=== PATIENT | female | born 1955 | race Caucasian/White ===

== ENCOUNTER 2017-03-09 19:14 | Emergency (ER) | payer OTHER ==
[2017-03-09 19:30] VITALS: TEMP 98.8; BMI 26.2
[2017-03-09] MEDS ORDERED: KETOROLAC TROMETHAMINE 30 MG/1 ML VIAL IVPUSH ONE (20:28)
--- NOTE | 2017-03-09 20:28 | PDOC ---
History of Present Illness - General History Source: Patient Exam Limitations: No Limitations - History of Present Illness Initial Comments: 03/09/17 20:32 61 yr old female, with significant past medical history of HTN, who presents to the emergency room complaining of midsternal, nonradiating chest pain for several weeks. She describes the pain as pressure. She has not taken any medication for the pain because she didn't think anything of it; however, the chest pain has not resolved and wanted to get checked out. Denies heavy lifting, trauma, recent injury. Denies fever, chills, nausea, vomiting. Denies SOB, cough. Denies recent travel. Denies sick contacts. Allergies: NKDA Social Hx: No tobacco use. PCP: Dr. Barron <Kimberley Russo - Last Filed: 03/09/17 21:20> - General History Source: Patient <Wes Choi - Last Filed: 03/10/17 02:01> - General Chief Complaint: Chest Pain Stated Complaint: CHEST PAIN Time Seen by Provider: 03/09/17 20:27 Past History <Kimberley Russo - Last Filed: 03/09/17 21:20> - Past Medical History HTN: Yes - Surgical History Appendectomy: Yes - Immunization History Td Vaccination: No Immunization Up to Date: Yes - Suicide/Smoking/Psychosocial Hx Smoking Status: No Smoking History: Never smoked Number of Cigarettes Smoked Daily: 0 Hx Alcohol Use: No Drug/Substance Use Hx: No <Wes Choi - Last Filed: 03/10/17 02:01> - Past Medical History Allergies/Adverse Reactions: Allergies Allergy/AdvReac Type Severity Reaction Status Date / Time No Known Allergies Allergy Verified 03/09/17 19:31 Home Medications: Ambulatory Orders Cyclobenzaprine HCl [Flexeril 10 mg] 10 mg PO BID PRN 03/09/17 Losartan/Hydrochlorothiazide [Losartan-Hctz 50-12.5 mg Tab] 1 each PO DAILY 03/16 Review of Systems - Review of Systems Able to Perform ROS?: Yes Comments:: 03/09/17 20:33 CONSTITUTIONAL: Absent: fever, no chills, no fatigue EYES: Absent: visual changes ENT: Absent: ear pain, no sore throat CARDIOVASCULAR: Present: chest pain Absent: no palpitations RESPIRATORY: Absent: cough, no SOB GI: Absent: abdominal pain, no nausea, no vomiting, no constipation, no diarrhea GENITOURINARY: Absent: dysuria, no frequency, no hematuria MUSCULOSKELETAL: Absent: back pain, no arthralgia, no myalgia SKIN: Absent: rash <RafaelaKimberley - Last Filed: 03/09/17 21:20> *Physical Exam - Vital Signs Last Vital Signs Temp Pulse Resp BP Pulse Ox 98.8 F 97 H 16 146/83 100 03/09/17 19:26 03/09/17 19:26 03/09/17 19:26 03/09/17 19:26 03/09/17 19:26 - Physical Exam Comments: 03/09/17 20:34 GENERAL: Well-appearing, well-nourished. No apparent distress. HEENT: Normocephalic, atraumatic. PERRL, EOM intact. CARDIOVASCULAR: Normal S1, S2. Regular rate and rhythm. PULMONARY: Clear to auscultation bilaterally. ABDOMEN: Soft, non-distended, non-tender. EXTREMITIES: Normal ROM in all four extremities. No gross deformities. SKIN: Warm, dry. No rash NEUROLOGICAL: No focal neurological deficits. <RafaelaKimberley - Last Filed: 03/09/17 21:20> - Vital Signs Last Vital Signs Temp Pulse Resp BP Pulse Ox 98.8 F 97 H 16 146/83 100 03/09/17 19:26 03/09/17 19:26 03/09/17 19:26 03/09/17 19:26 03/09/17 19:26 <Wes Choi - Last Filed: 03/10/17 02:01> Heart Score/ECG Review #1 General ECG Interpretation: Sinus Rhythm, Normal Rate, Normal Intervals <RafaelaKimberley - Last Filed: 03/09/17 21:20> ED Treatment Course - LABORATORY CBC & Chemistry Diagram: 03/09/17 20:49 03/09/17 20:49 - RADIOLOGY Radiograph Interpretation: 03/09/17 21:20 EXAM#: TYPE/EXAM: RESULT: [id number] RAD/CHEST X-RAY PORTABLE* Rule out infiltrate Portable chest x-ray, semiupright Since prior chest x-ray dated 03/22/2013, the cardiac silhouette remains within normal limits in size and the lung is clear. Mediastinum and visualized osseous structures appear intact. Impression No significant interval change or acute lung disease is present Reported By: Abundio Monahan MD 03/09/172112 <Kimberley Russo - Last Filed: 03/09/17 21:20> - LABORATORY CBC & Chemistry Diagram: 03/09/17 20:49 03/09/17 20:49 <Wes Choi - Last Filed: 03/10/17 02:01> Medical Decision Making - Medical Decision Making 03/10/17 01:58 Dr. Choi: The scribe's documentation has been prepared under my direction and personally reviewed by me in its entirery. I confirm that the note above accurately reflects all work, treatment, procedures, and medical decision making performed by me. 03/10/17 02:00 Pt advised to continue her medications and follow up with cardiology <Wes Choi - Last Filed: 03/10/17 02:01> *DC/Admit/Observation/Transfer - Attestations Scribe Attestion: 03/09/17 20:34 Documentation prepared by THAIS Heredia, acting as medical instructor for Wes Choi MD. <Kimberley Russo - Last Filed: 03/09/17 21:20> - Discharge Dispostion Admit: No <Wes Choi - Last Filed: 03/10/17 02:01> Diagnosis at time of Disposition: Chest pain - Discharge Dispostion Disposition: HOME Condition at time of disposition: Stable - Referrals Referrals: Tameka Barron MD [Primary Care Provider] - Hernandez Leon MD [Staff Physician] - - Patient Instructions Printed Discharge Instructions: DI for Chest Pain
[2017-03-09] MEDS ORDERED: KETOROLAC TROMETHAMINE 30 MG/1 ML VIAL ONE (20:33)
[2017-03-09 20:57] LABS: BASOPHIL 0.4 % (0-2.0); EOSINOPHIL 0.6 % (0-4.5); MCH 29.4 pg (25.7-33.7); MCHC 33.4 g/dl (32.0-36.0); NEUTROPHILS 72.4 % (42.8-82.8); PLATELET COUNT 263 K/MM3 (134-434); WHITE BLOOD COUNT 4.9 K/mm3 (4.0-10.0)
[2017-03-09 21:12] LABS: INR 0.88 (0.82-1.09); PROTHROMBIN TIME (PATIENT) 9.7 SEC (9.98-11.88)
[2017-03-09 21:36] LABS: ALBUMIN 4.5 g/dl (3.4-5.0); ANION GAP 9 (8-16); BILIRUBIN,TOTAL 0.3 mg/dL (0.2-1.0); CALCIUM 9.6 mg/dL (8.5-10.1); CO2 30 mmol/L (21-32); CREATININE 1.3 mg/dL (0.55-1.02); GLUCOSE,RANDOM 97 mg/dL (74-106); MAGNESIUM 2.3 mg/dL (1.8-2.4); SGOT/AST 28 U/L (15-37); SGPT/ALT 29 U/L (12-78); TOT PROT 8.6 g/dl (6.4-8.2)
[2017-03-09 21:39] LABS: ALK PHOS 113 U/L (45-117); CPK 241 IU/L (26-192); TROPONIN I < 0.02 ng/ml (0.00-0.05)
[2017-03-09] MEDS ORDERED: ONDANSETRON 4 MG/2 ML VIAL IVPUSH STA (22:56)
[2017-03-09] MEDS ORDERED: morphine CARPU-JECT 2 MG/1 ML DISP.SYRIN IVPUSH ONE (22:56)
[2017-03-09] MEDS ORDERED: morphine CARPU-JECT 10 MG/1 ML DISP.SYRIN ONE (22:59)
[2017-03-09] MEDS ORDERED: ONDANSETRON 4 MG/2 ML VIAL ONE (22:59)
[2017-03-10 01:19] VITALS: BP 127/82; PULSE 89
[2017-03-10 01:52] LABS: CPK 178 IU/L (26-192); TROPONIN I < 0.02 ng/ml (0.00-0.05)
--- NOTE | 2017-03-10 12:00 | EKG ---
Test Reason : Blood Pressure : / mmHG Vent. Rate : 095 BPM Atrial Rate : 095 BPM P-R Int : 166 ms QRS Dur : 082 ms QT Int : 376 ms P-R-T Axes : 064 -15 052 degrees QTc Int : 472 ms NORMAL SINUS RHYTHM NORMAL ECG WHEN COMPARED WITH ECG OF 12-NOV-2014 02:42, VENT. RATE HAS INCREASED BY 43 BPM QUESTIONABLE CHANGE IN QRS AXIS QT HAS LENGTHENED Confirmed by KIKA FALK, SUMAN ([id number]) on 03/10/2017 12:00:22 PM Referred By: Confirmed By:SUMAN ANAND MD
== END 2017-03-10 02:05 | disposition home or self-care (01) ==
LOC: JER 19:14
PROC: 3E033NZ Introduction of Analgesics, Hypnotics, Sedatives into Peripheral Vein, Percutaneous Approach (ICD-10-PCS; principal; 2017-03-09)
PROC: 3E0333Z Introduction of Anti-inflammatory into Peripheral Vein, Percutaneous Approach (ICD-10-PCS; 2017-03-09)
PROC: 3E033GC Introduction of Other Therapeutic Substance into Peripheral Vein, Percutaneous Approach (ICD-10-PCS; 2017-03-09)
DX: R07.9 Chest pain, unspecified (principal); I10 Essential (primary) hypertension
CPT/HCPCS: 36415; 71010-TC; 80053; 82550; 82553; 83735; 84484; 85025; 85610; 93005; 93010; 99284-25

== ENCOUNTER 2017-06-08 14:44 | Emergency (ER) | payer OTHER ==
[2017-06-08 15:05] VITALS: BP 131/80; PULSE 84; TEMP 98.7; BMI 24.1
--- NOTE | 2017-06-08 15:07 | PDOC ---
Rapid Medical Evaluation Chief Complaint: Cold Symptoms Time Seen by Provider: 06/08/17 15:03 Medical Evaluation: Allergies Allergy/AdvReac Type Severity Reaction Status Date / Time No Known Allergies Allergy Verified 03/09/17 19:31 06/08/17 15:03 The patient presents with a chief complaint of: Pleuritic chest pain and dry cough for 6 days. Admits to fevers, chills, headache, sore throat I have performed a brief in-person evaluation of this patient; Pertinent physical exam findings. Expiratory wheezing, afebrile I have ordered the following: Rapid strep, influenza, CXR The patient will proceed to the ED for further evaluation. Discharge Disposition - Diagnosis Bronchitis - Discharge Dispostion Disposition: HOME Condition at time of disposition: Improved - Prescriptions Prescriptions: Albuterol Sulfate Inhaler - [Ventolin HFA Inhaler -] 1 - 2 inh PO Q4H #1 inhaler Albuterol Sulfate Inhaler - [Ventolin HFA Inhaler -] 1 - 2 inh PO Q4H #1 inhaler Prednisone [Deltasone -] 40 mg PO DAILY #10 tablet Prednisone [Deltasone -] 40 mg PO DAILY #10 tablet - Referrals Referrals: Jose Cunha MD [Primary Care Provider] - - Patient Instructions Additional Instructions: use the inhaler as directed take the next dose of prednisone tomorrow morning continue the Augmentin you have already started follow with your doctor in 24-48hrs for a follow up visit Return to ER for any worsening symptoms - Post Discharge Activity
[2017-06-08] MEDS ORDERED: predniSONE 20 MG TABLET (UD) PO ONE (15:34)
[2017-06-08] MEDS ORDERED: ALBUTEROL SO4 2.5/IPRATROPIUM 0.5 INH SOL 3 ML VIAL.NEB. NEB ONE (15:34)
[2017-06-08 16:09] LABS: BASO % 0.4 % (0-2.0); EOS % 0.9 % (0-4.5); HEMATOCRIT 40.1 % (32.4-45.2); HEMOGLOBIN 13.5 GM/dL (10.7-15.3); LYMPH % 27.4 % (8-40); MCH 29.4 pg (25.7-33.7); MCHC 33.6 g/dl (32.0-36.0); MEAN CELL VOLUME 87.5 fl (80-96); MEAN PLT VOLUME 8.6 fl (7.5-11.1); MONO % 9.9 % (3.8-10.2); NEUT % 61.4 % (42.8-82.8); PLATELET COUNT 239 K/MM3 (134-434); RBC 4.58 M/mm3 (3.60-5.2); RDW 13.6 % (11.6-15.6)
--- NOTE | 2017-06-08 16:20 | PDOC ---
History of Present Illness - General Chief Complaint: Cold Symptoms Stated Complaint: CHEST TIGHTNESS,COUGH,FEVER, CONGESTION Time Seen by Provider: 06/08/17 15:03 History Source: Patient Exam Limitations: No Limitations - History of Present Illness Initial Comments: 06/08/17 16:18 62 yr female history of HTN with cough for one week getting worse. fever yesterday on Augmentin day 4 . Pt has wheezing. no chest pain no shortness of breath. non smoker no sick contacts. Timing/Duration: reports: getting worse Severity: reports: moderate Past History - Past Medical History Allergies/Adverse Reactions: Allergies Allergy/AdvReac Type Severity Reaction Status Date / Time No Known Allergies Allergy Verified 06/08/17 15:05 Home Medications: Ambulatory Orders Losartan/Hydrochlorothiazide [Losartan-Hctz 50-12.5 mg Tab] 1 each PO DAILY 03/16 Albuterol Sulfate Inhaler - [Ventolin HFA Inhaler -] 1 - 2 inh PO Q4H #1 inhaler 06/08/17 Amoxicillin/Potassium Clav [Augmentin 875-125 Tablet] 1 each PO ASDIR 06/08/17 Guaifenesin [Mucinex -] 600 mg PO BID 06/08/17 Prednisone [Deltasone -] 40 mg PO DAILY #10 tablet 06/08/17 COPD: No HTN: Yes - Surgical History Appendectomy: Yes - Immunization History Td Vaccination: No Immunization Up to Date: Yes - Suicide/Smoking/Psychosocial Hx Smoking Status: No Smoking History: Never smoked Number of Cigarettes Smoked Daily: 0 Information on smoking cessation initiated: No Hx Alcohol Use: No Drug/Substance Use Hx: No Substance Use Type: None Respiratory Specific PMHX - Complaint Specific PMHX Angina: No Bronchitis: No Pneumonia: No Pulmonary Embolus: No TB (Tuberculosis): No Review of Systems - Review of Systems Able to Perform ROS?: Yes Is the patient limited [place] proficient: No Constitutional: Yes: Symptoms Reported, Fever HEENTM: Yes: Symptoms Reported, Throat Pain Respiratory: Yes: Symptoms reported, Cough *Physical Exam - Vital Signs Last Vital Signs Temp Pulse Resp BP Pulse Ox 98.7 F 84 18 131/80 99 06/08/17 15:02 06/08/17 15:02 06/08/17 15:02 06/08/17 15:02 06/08/17 15:02 - Physical Exam General Appearance: Yes: Nourished, Appropriately Dressed HEENT: positive: EOMI, RACHANA, TMs Normal, Pharynx Normal Neck: positive: Supple. 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, Fully Oriented, Alert, Normal Mood/ Affect, Normal Response, Motor Strength 5/5 Heart Score/ECG Review - Electrocardiogram EKG: Normal (NSR no ectopy) ED Treatment Course - LABORATORY CBC & Chemistry Diagram: 06/08/17 15:36 06/08/17 15:36 - ADDITIONAL ORDERS Additional order review: 06/08/17 15:36 RBC 4.58 MCV 87.5 MCHC 33.6 RDW 13.6 MPV 8.6 Neutrophils % 61.4 Lymphocytes % 27.4 D Monocytes % 9.9 Eosinophils % 0.9 Basophils % 0.4 - Medications Given in the ED: ED Medications Discontinued Medications Generic Name Dose Route Start Last Admin Trade Name Freq PRN Reason Stop Dose Admin Albuterol/Ipratropium 1 amp 06/08/17 15:34 06/08/17 15:43 Duoneb - NEB 06/08/17 15:35 1 amp ONCE ONE Administration Prednisone 60 mg 06/08/17 15:34 06/08/17 15:48 Deltasone - PO 06/08/17 15:35 60 mg ONCE ONE Administration Medical Decision Making - Medical Decision Making 06/08/17 16:19 cc: cough fever yesterday wheezing bilaterally will check labs, EKG, CXR duonebs prednisone 06/08/17 16:42 pt feels better after nebulizers. wheezing has resolved pt speaking clear sentences no distress. *DC/Admit/Observation/Transfer Diagnosis at time of Disposition: Bronchitis - Discharge Dispostion Disposition: HOME Condition at time of disposition: Improved - Prescriptions Prescriptions: Albuterol Sulfate Inhaler - [Ventolin HFA Inhaler -] 1 - 2 inh PO Q4H #1 inhaler Prednisone [Deltasone -] 40 mg PO DAILY #10 tablet - Referrals Referrals: Jose Cunha MD [Primary Care Provider] - - Patient Instructions Additional Instructions: use the inhaler as directed take the next dose of prednisone tomorrow morning continue the Augmentin you have already started follow with your doctor in 24-48hrs for a follow up visit Return to ER for any worsening symptoms - Post Discharge Activity
[2017-06-08 16:35] LABS: ALBUMIN 4.2 g/dl (3.4-5.0); CALCIUM 9.3 mg/dL (8.5-10.1); CHLORIDE 100 mmol/L (98-107); POTASSIUM 3.5 mmol/L (3.5-5.1); SODIUM 140 mmol/L (136-145)
[2017-06-08 16:43] LABS: ALK PHOS 81 U/L (45-117); ANION GAP 10 (8-16); BILIRUBIN,TOTAL 0.5 mg/dL (0.2-1.0); BLOOD UREA NITROGEN 15 mg/dL (7-18); CO2 30 mmol/L (21-32); CREATININE 1.1 mg/dL (0.55-1.02); GLUCOSE,RANDOM 102 mg/dL (74-106); N-TERMINAL BNP 49.33 pg/ml (5-125); SGOT/AST 37 U/L (15-37); SGPT/ALT 40 U/L (12-78); TOT PROT 8.4 g/dl (6.4-8.2)
--- NOTE | 2017-06-09 09:27 | EKG ---
Test Reason : Blood Pressure : / mmHG Vent. Rate : 073 BPM Atrial Rate : 073 BPM P-R Int : 144 ms QRS Dur : 076 ms QT Int : 414 ms P-R-T Axes : 065 -15 044 degrees QTc Int : 456 ms NORMAL SINUS RHYTHM NORMAL ECG WHEN COMPARED WITH ECG OF 09-MAR-2017 19:29, NO SIGNIFICANT CHANGE WAS FOUND Confirmed by SUMAN ANAND MD ([id number]) on 06/09/2017 9:27:10 AM Referred By: FADY Confirmed By:SUMAN ANAND MD
== END 2017-06-08 17:01 | disposition home or self-care (01) ==
LOC: JERFT 14:44
PROC: 3E0F7GC Introduction of Other Therapeutic Substance into Respiratory Tract, Via Natural or Artificial Opening (ICD-10-PCS; principal; 2017-06-08)
DX: J40 Bronchitis, not specified as acute or chronic (principal); I10 Essential (primary) hypertension
CPT/HCPCS: 36415; 71046-TC; 80053; 82550; 83880; 84484; 85025; 87070; 87430; 87804; 93005; 93010; 94640; 99281-25

== ENCOUNTER 2020-04-17 14:38 | Emergency (ER) | payer MEDICARE, OTHER ==
[2020-04-17 14:50] VITALS: BMI 25.7
[2020-04-17] MEDS ORDERED: ACETAMINOPHEN 1000 MG/100 ML VIAL (NON FORMULARY) IVPB ONE (14:55)
[2020-04-17] MEDS ORDERED: METOCLOPRAMIDE HCL INJECTION 10 MG/2 ML VIAL IVPB ONE (14:55)
[2020-04-17] MEDS ORDERED: SODIUM CHLORIDE 1,000 ML IV STA (14:55)
[2020-04-17] MEDS ORDERED: METOCLOPRAMIDE HCL INJECTION 10 MG/2 ML VIAL ONE (16:10)
[2020-04-17] MEDS ORDERED: ACETAMINOPHEN INJECTION 100 ML IVPB ONE (16:10)
[2020-04-17 16:37] LABS: BASO % 0.7 % (0-2.0); EOS % 0.9 % (0-4.5); HEMATOCRIT 38.7 % (32.4-45.2); HEMOGLOBIN 12.8 GM/dL (10.7-15.3); LYMPH % 21.7 % (8-40); MCH 28.9 pg (25.7-33.7); MEAN CELL VOLUME 87.5 fl (80-96); MEAN PLT VOLUME 8.8 fl (7.5-11.1); MONO % 7.7 % (3.8-10.2); PLATELET COUNT 276 K/MM3 (134-434); RBC 4.42 M/mm3 (3.60-5.2); RDW 13.9 % (11.6-15.6); WHITE BLOOD COUNT 4.5 K/mm3 (4.0-10.0)
[2020-04-17 16:42] LABS: INR 0.96 (0.83-1.09); PROTHROMBIN TIME (PATIENT) 11.6 SEC (9.7-13.0)
[2020-04-17 16:55] LABS: CHLORIDE 107 mmol/L (98-107); POTASSIUM 5.7 mmol/L (3.5-5.1); SODIUM 139 mmol/L (136-145)
[2020-04-17 16:57] LABS: CALCIUM 9.6 mg/dL (8.5-10.1)
[2020-04-17 16:58] LABS: ALBUMIN 4.1 g/dl (3.4-5.0); ANION GAP 5 MMOL/L (8-16); BLOOD UREA NITROGEN 14.6 mg/dL (7-18); CO2 27 mmol/L (21-32); GLUCOSE,RANDOM 92 mg/dL (74-106)
[2020-04-17 17:01] LABS: CREATININE 1.1 mg/dL (0.55-1.3); SGOT/AST 51 U/L (15-37); SGPT/ALT 23 U/L (13-61)
[2020-04-17 17:02] LABS: BILIRUBIN,TOTAL 0.5 mg/dL (0.2-1); TOT PROT 7.9 g/dl (6.4-8.2)
[2020-04-17 17:04] LABS: ALK PHOS 72 U/L (45-117)
[2020-04-17 18:21] VITALS: BP 164/98; PULSE 89; TEMP 98.2
== END 2020-04-17 18:20 | disposition home or self-care (01) ==
LOC: JER 14:38
PROC: 3E0333Z Introduction of Anti-inflammatory into Peripheral Vein, Percutaneous Approach (ICD-10-PCS; principal; 2020-04-17)
PROC: 3E033GC Introduction of Other Therapeutic Substance into Peripheral Vein, Percutaneous Approach (ICD-10-PCS; 2020-04-17)
DX: G44.89 Other headache syndrome (principal)
CPT/HCPCS: 36415; 70450-TC; 80053; 82550; 82553; 84484; 85025; 85610; 85651; 86140; 93005; 93010; 99285-25; J0131

== ENCOUNTER 2020-05-26 06:37 | Emergency (ER) | payer MEDICARE, OTHER ==
[2020-05-26 06:51] VITALS: BMI 25.0
[2020-05-26] MEDS ORDERED: LACTATED RINGERS SOLUTION 1000 ML INFUS.BAG IV ONE (08:23)
[2020-05-26] MEDS ORDERED: ONDANSETRON 4 MG/2 ML VIAL IVPB ONE (08:23)
[2020-05-26] MEDS ORDERED: DEXAMETHASONE SOD PHOSPHATE 10 MG/1 ML VIAL PO ONE (08:27)
[2020-05-26] MEDS ORDERED: ACETAMINOPHEN 1000 MG/100 ML VIAL (NON FORMULARY) IVPB ONE (08:38)
[2020-05-26] MEDS ORDERED: DEXAMETHASONE SOD PHOSPHATE 10 MG/1 ML VIAL ONE (08:41)
[2020-05-26] MEDS ORDERED: ACETAMINOPHEN INJECTION 100 ML IVPB ONE (08:42)
[2020-05-26] MEDS ORDERED: ONDANSETRON 4 MG/2 ML VIAL ONE (08:42)
[2020-05-26 09:24] LABS: BASO % 0.1 % (0-2.0); EOS % 0.3 % (0-4.5); HEMATOCRIT 36.7 % (32.4-45.2); HEMOGLOBIN 12.5 GM/dL (10.7-15.3); INR 0.98 (0.83-1.09); LYMPH % 11.2 % (8-40); MCH 29.6 pg (25.7-33.7); MEAN CELL VOLUME 87.1 fl (80-96); MEAN PLT VOLUME 7.7 fl (7.5-11.1); MONO % 8.8 % (3.8-10.2); NEUT % 79.6 % (42.8-82.8); PLATELET COUNT 373 K/MM3 (134-434); PROTHROMBIN TIME (PATIENT) 12.1 SEC (9.7-13.0); RBC 4.22 M/mm3 (3.60-5.2); RDW 13.6 % (11.6-15.6); WHITE BLOOD COUNT 7.2 K/mm3 (4.0-10.0)
[2020-05-26 09:27] LABS: ACTIVATED PTT 25.9 SECONDS (25.2-36.5)
[2020-05-26 09:47] LABS: CHLORIDE 109 mmol/L (98-107); POTASSIUM 4.2 mmol/L (3.5-5.1); SODIUM 143 mmol/L (136-145)
[2020-05-26 09:49] LABS: ALBUMIN 3.3 g/dl (3.4-5.0); ANION GAP 3 MMOL/L (8-16); BLOOD UREA NITROGEN 13.7 mg/dL (7-18); CALCIUM 8.7 mg/dL (8.5-10.1); CO2 31 mmol/L (21-32); LIPASE 188 U/L (73-393); MAGNESIUM 2.2 mg/dL (1.8-2.4)
[2020-05-26 09:51] LABS: GLUCOSE,RANDOM 86 mg/dL (74-106)
[2020-05-26 09:52] LABS: CREATININE 1.1 mg/dL (0.55-1.3); SGOT/AST 11 U/L (15-37); SGPT/ALT 18 U/L (13-61)
[2020-05-26 09:54] LABS: BILIRUBIN,TOTAL 0.5 mg/dL (0.2-1)
[2020-05-26 09:56] LABS: ALK PHOS 69 U/L (45-117)
[2020-05-26] MEDS ORDERED: KETOROLAC TROMETHAMINE 15 MG/ML VIAL IVPUSH ONE (10:07)
[2020-05-26] MEDS ORDERED: BAMLANIVIMAB 700 MG in SODIUM CHLORIDE 180 ML IVPB ONE (10:26)
[2020-05-26] MEDS ORDERED: guaiFENesin/CODEINE 10 ML UNIT-DOSE CUPS PO ONE (10:26)
[2020-05-26] MEDS ORDERED: guaiFENesin/CODEINE 5 ML UNIT-DOSE CUPS PO ONE (10:43)
[2020-05-26] MEDS ORDERED: KETOROLAC TROMETHAMINE 15 MG/ML VIAL ONE (10:44)
[2020-05-26 15:41] VITALS: BP 129/64; PULSE 64; TEMP 98.8
== END 2020-05-26 15:45 | disposition home or self-care (01) ==
LOC: JER 06:37
PROC: 3E033NZ Introduction of Analgesics, Hypnotics, Sedatives into Peripheral Vein, Percutaneous Approach (ICD-10-PCS; principal; 2020-05-26)
PROC: 3E033GC Introduction of Other Therapeutic Substance into Peripheral Vein, Percutaneous Approach (ICD-10-PCS; 2020-05-26)
DX: R51.9 Headache, unspecified (principal); R07.9 Chest pain, unspecified
CPT/HCPCS: 36415; 71045-TC-FY; 80053; 82550; 83605; 83690; 83735; 84484; 85025; 85610; 85730; 93005; 93010; 99285-25; J0131; J1100; M0239; Q0239

== ENCOUNTER 2020-11-11 04:35 | Emergency (ER) | payer MEDICARE, OTHER ==
[2020-11-11 04:59] VITALS: BP 151/92; PULSE 101; TEMP 98; BMI 24.1
[2020-11-11 05:49] LABS: BASO % 0.7 % (0-2.0); EOS % 1.9 % (0-4.5); HEMATOCRIT 38.4 % (32.4-45.2); HEMOGLOBIN 12.5 GM/dL (10.7-15.3); LYMPH % 27.8 % (8-40); MCH 28.7 pg (25.7-33.7); MCHC 32.6 g/dl (32.0-36.0); MEAN CELL VOLUME 88.1 fl (80-96); MEAN PLT VOLUME 7.9 fl (7.5-11.1); MONO % 8.7 % (3.8-10.2); NEUT % 60.9 % (42.8-82.8); PLATELET COUNT 299 K/MM3 (134-434); RBC 4.36 M/mm3 (3.60-5.2); RDW 13.6 % (11.6-15.6); WHITE BLOOD COUNT 5.6 K/mm3 (4.0-10.0)
[2020-11-11 06:01] LABS: CHLORIDE 107 mmol/L (98-107); SODIUM 139 mmol/L (136-145)
[2020-11-11 06:03] LABS: CALCIUM 9.2 mg/dL (8.5-10.1)
[2020-11-11 06:04] LABS: ANION GAP 8 MMOL/L (8-16); BLOOD UREA NITROGEN 20.1 mg/dL (7-18); CO2 25 mmol/L (21-32); GLUCOSE,RANDOM 105 mg/dL (74-106)
[2020-11-11 06:06] LABS: SGPT/ALT 23 U/L (13-61)
[2020-11-11 06:07] LABS: SGOT/AST 24 U/L (15-37)
[2020-11-11 06:08] LABS: BILIRUBIN,TOTAL 0.3 mg/dL (0.2-1); TOT PROT 7.4 g/dl (6.4-8.2)
[2020-11-11 06:09] LABS: ALK PHOS 91 U/L (45-117)
== END 2020-11-11 05:54 | disposition home or self-care (01) ==
LOC: JER 04:35
DX: R68.2 Dry mouth, unspecified (principal)
CPT/HCPCS: 36415; 71046-TC-FY; 80053; 82550; 84484; 85025; 93005; 93010; 99285-25

== ENCOUNTER 2021-02-12 02:53 | Observation (INO) | payer MEDICARE, OTHER ==
[2021-02-12 03:02] VITALS: BMI 24.1
[2021-02-12] MEDS ORDERED: MAG HYDROX/AL HYDROX/SIMETH 30 ML UNIT-DOSE CUP PO ONE (03:45)
[2021-02-12] MEDS ORDERED: FAMOTIDINE 20 MG/50 ML IVPB 20 MG/50 ML MG IVPB ONE ×2 (03:45→04:28)
[2021-02-12] MEDS ORDERED: MAG HYDROX/AL HYDROX/SIMETH 30 ML UNIT-DOSE CUP ONE (04:28)
[2021-02-12 04:45] LABS: BASO % 0.7 % (0-2.0); EOS % 2.2 % (0-4.5); HEMATOCRIT 36.5 % (32.4-45.2); HEMOGLOBIN 12.3 GM/dL (10.7-15.3); LYMPH % 24.1 % (8-40); MCH 29.4 pg (25.7-33.7); MCHC 33.6 g/dl (32.0-36.0); MEAN CELL VOLUME 87.5 fl (80-96); MEAN PLT VOLUME 7.6 fl (7.5-11.1); MONO % 8.4 % (3.8-10.2); NEUT % 64.6 % (42.8-82.8); PLATELET COUNT 252 10^3/uL (134-434); RBC 4.17 M/mm3 (3.60-5.2); RDW 14.1 % (11.6-15.6); WHITE BLOOD COUNT 4.4 K/mm3 (4.0-10.0)
[2021-02-12 05:01] LABS: CHLORIDE 106 mmol/L (98-107); SODIUM 140 mmol/L (136-145)
[2021-02-12 05:05] LABS: ALBUMIN 3.9 g/dl (3.4-5.0); ANION GAP 6 MMOL/L (8-16); CO2 28 mmol/L (21-32); GLUCOSE,RANDOM 103 mg/dL (74-106)
[2021-02-12 05:06] LABS: BLOOD UREA NITROGEN 19.4 mg/dL (7-18)
[2021-02-12 05:08] LABS: CREATININE 1.1 mg/dL (0.55-1.3)
[2021-02-12 05:09] LABS: BILIRUBIN,TOTAL 0.2 mg/dL (0.2-1); SGOT/AST 23 U/L (15-37); SGPT/ALT 24 U/L (13-61); TOT PROT 7.6 g/dl (6.4-8.2)
[2021-02-12 05:11] LABS: ALK PHOS 96 U/L (45-117)
[2021-02-12 07:12] LABS: LIPASE 206 U/L (73-393)
[2021-02-12] MEDS ORDERED: ACETAMINOPHEN 325 MG TABLET (FP) PO ONE (07:39)
[2021-02-12] MEDS ORDERED: ACETAMINOPHEN 325 MG TABLET (FP) ONE (07:51)
[2021-02-12] MEDS ORDERED: ACETAMINOPHEN 325 MG TABLET (FP) PO PRN (10:48)
[2021-02-12] MEDS ORDERED: METHOCARBAMOL 500 MG TABLET PO SCH (11:00)
[2021-02-12 12:26] LABS: CHOLESTEROL 202 mg/dL (50-200)
[2021-02-12 12:29] LABS: HDL CHOLESTEROL 70 mg/dL (40-60); LDL CHOLESTEROL (ONLY SJRH) 112 mg/dL (5-100); TRIGLYCERIDES 83 mg/dL (0-150)
[2021-02-12] MEDS: PANTOPRAZOLE 40 MG TABLET PO SCH (17:48)
[2021-02-12] MEDS ORDERED: METHOCARBAMOL 500 MG TABLET ONE (17:48)
[2021-02-12] MEDS ORDERED: PANTOPRAZOLE 40 MG TABLET ONE (17:48)
[2021-02-12] MEDS ORDERED: ATORVASTATIN CA 10 MG TABLET (FP) PO SCH (22:00)
[2021-02-13 08:49] VITALS: TEMP 98.1
[2021-02-13] MEDS ORDERED: PANTOPRAZOLE 40 MG TABLET ONE (08:51)
[2021-02-13] MEDS ORDERED: LOSARTAN POTASSIUM 50 MG TABLET ONE (08:52)
[2021-02-13] MEDS: PANTOPRAZOLE 40 MG TABLET PO SCH (09:07)
[2021-02-13] MEDS ORDERED: LOSARTAN POTASSIUM 50 MG TABLET PO SCH (10:00)
[2021-02-13 13:43] VITALS: BP 118/70; PULSE 62
== END 2021-02-13 13:00 | disposition home or self-care (01) ==
LOC: JER 02:53 → JERBED 06:05 → INTOOBSV 06:05
PROVIDERS: ADMIT Internal Medicine; ATTEND Internal Medicine
PROC: 3E033GC Introduction of Other Therapeutic Substance into Peripheral Vein, Percutaneous Approach (ICD-10-PCS; principal; 2021-02-12)
DX: U07.1 COVID-19 (principal); J40 Bronchitis, not specified as acute or chronic; I10 Essential (primary) hypertension; R07.89 Other chest pain; J32.9 Chronic sinusitis, unspecified; Z82.49 Family history of ischemic heart disease and other diseases of the circulatory system
CPT/HCPCS: 36415; 71046-TC-FY; 80053; 80061; 82550; 82553; 83690; 84484; 85025; 93005; 93010; 93017; 93018; 96365; 99285-25; C9803; G0378; U0003; U0005

== ENCOUNTER 2022-04-16 23:26 | Emergency (ER) | payer MEDICARE, OTHER ==
[2022-04-16 23:32] VITALS: BP 165/94; PULSE 86; RESP 18; TEMP 97.4; BMI 23.6
[2022-04-17] MEDS ORDERED: FAMOTIDINE 20 MG/50 ML IVPB 20 MG/50 ML MG IVPB ONE ×2 (00:07→00:34)
[2022-04-17] MEDS ORDERED: MAG HYDROX/AL HYDROX/SIMETH -MYLANTA- ORAL SUSPENSION PO ONE (00:07)
[2022-04-17] MEDS ORDERED: ACETAMINOPHEN 1000 MG/100 ML BAG IVPB ONE ×2 (00:07→03:49)
[2022-04-17] MEDS ORDERED: ACETAMINOPHEN INJECTION 100 ML IVPB ONE ×2 (00:33→04:01)
[2022-04-17] MEDS ORDERED: MAG HYDROX/AL HYDROX/SIMETH 30 ML UNIT-DOSE CUP ONE (00:34)
[2022-04-17 01:09] LABS: BASO % 0.7 % (0-2.0); EOS % 2.4 % (0-4.5); HEMATOCRIT 36.2 % (32.4-45.2); HEMOGLOBIN 12.1 GM/dL (10.7-15.3); LYMPH % 26.6 % (8-40); MCH 29.4 pg (25.7-33.7); MCHC 33.5 g/dl (32.0-36.0); MEAN CELL VOLUME 87.5 fl (80-96); MEAN PLT VOLUME 7.6 fl (7.5-11.1); MONO % 9.1 % (3.8-10.2); NEUT % 61.2 % (42.8-82.8); PLATELET COUNT 245 10^3/uL (134-434); RBC 4.14 M/mm3 (3.60-5.2); RDW 13.7 % (11.6-15.6)
[2022-04-17 01:12] LABS: EPI CELLS 4 /uL (0-25.1); HYALINE CASTS 0 /uL (0-3.1); URINE APPEARANCE CLEAR; URINE BACTERIA 10 /uL (0-1359); URINE BILIRUBIN NEGATIVE (NEGATIVE); URINE COLOR YELLOW; URINE GLUCOSE (UA) NEGATIVE (NEGATIVE); URINE KETONE NEGATIVE (NEGATIVE); URINE LEUK ESTERASE TRACE (NEGATIVE); URINE NITRITE NEGATIVE (NEGATIVE); URINE PROTEIN NEGATIVE (NEGATIVE); URINE RBC 43 /uL (0-23.9); URINE UROBILINOGEN 0.2 mg/dL (0.2-1.0); URINE WBC 16 /uL (0-25.8)
[2022-04-17 01:32] LABS: CALCIUM 9.3 mg/dL (8.5-10.1)
[2022-04-17 01:33] LABS: ALBUMIN 3.8 g/dl (3.4-5.0)
[2022-04-17 01:35] LABS: CREATININE 1.1 mg/dL (0.55-1.3)
[2022-04-17 01:37] LABS: BILIRUBIN,TOTAL 0.2 mg/dL (0.2-1); TOT PROT 7.3 g/dl (6.4-8.2)
== END 2022-04-17 05:11 | disposition home or self-care (01) ==
LOC: JER 23:26
PROC: 3E033GC Introduction of Other Therapeutic Substance into Peripheral Vein, Percutaneous Approach (ICD-10-PCS; principal; 2022-04-16)
DX: R00.2 Palpitations (principal)
CPT/HCPCS: 36415; 71045-TC-FY; 80053; 81003; 83690; 84439; 84443; 84484; 85025; 87086; 93005; 93010; 99285-25; C9803-CS; U0003; U0005

== ENCOUNTER 2022-11-13 22:41 | Emergency (ER) | payer MEDICARE, OTHER ==
[2022-11-13 22:55] VITALS: RESP 18; TEMP 98.3; BMI 23.3
[2022-11-13] MEDS ORDERED: FAMOTIDINE 20 MG/50 ML IVPB 20 MG/50 ML MG IVPB ONE ×2 (23:18→23:31)
[2022-11-13] MEDS ORDERED: LACTATED RINGERS SOLUTION 1000 ML INFUS.BAG IV ONE (23:18)
[2022-11-13] MEDS ORDERED: ACETAMINOPHEN 1000 MG/100 ML BAG IVPB ONE (23:18)
[2022-11-13] MEDS ORDERED: MAG HYDROX/AL HYDROX/SIMETH -MYLANTA- ORAL SUSPENSION PO ONE (23:18)
[2022-11-13] MEDS ORDERED: ACETAMINOPHEN INJECTION 100 ML IVPB ONE (23:31)
[2022-11-13] MEDS ORDERED: MAG HYDROX/AL HYDROX/SIMETH 30 ML UNIT-DOSE CUP ONE (23:31)
[2022-11-13] MEDS ORDERED: LIDOCAINE 5% TOPICAL PATCH TP ONE (23:56)
[2022-11-14] MEDS ORDERED: LIDOCAINE 5% TOPICAL PATCH TP ONE ×2 (00:25→02:13)
[2022-11-14 00:45] LABS: BASO % 0.5 % (0-2.0); EOS % 2.3 % (0-4.5); HEMATOCRIT 38.4 % (32.4-45.2); LYMPH % 31.9 % (8-40); MCHC 33.8 g/dl (32.0-36.0); MEAN CELL VOLUME 85.9 fl (80-96); MEAN PLT VOLUME 8.6 fl (7.5-11.1); MONO % 9.3 % (3.8-10.2); PLATELET COUNT 263 10^3/uL (134-434); RBC 4.46 M/mm3 (3.60-5.2); RDW 13.5 % (11.6-15.6)
[2022-11-14 00:56] LABS: INR 0.92 (0.83-1.09); PROTHROMBIN TIME (PATIENT) 10.7 SEC (9.7-13.0)
[2022-11-14 00:58] LABS: ACTIVATED PTT 27.6 SECONDS (25.2-36.5)
[2022-11-14 01:13] LABS: POTASSIUM 3.1 mmol/L (3.5-5.1)
[2022-11-14 01:14] VITALS: BP 133/75; PULSE 70
[2022-11-14 01:16] LABS: ALBUMIN 4.3 g/dl (3.4-5.0)
[2022-11-14 01:17] LABS: BLOOD UREA NITROGEN 20.5 mg/dL (7-18)
[2022-11-14 01:18] LABS: CALCIUM 9.8 mg/dL (8.5-10.1)
[2022-11-14 01:19] LABS: CREATININE 1.1 mg/dL (0.55-1.3)
[2022-11-14 01:21] LABS: BILIRUBIN,TOTAL 0.5 mg/dL (0.2-1)
[2022-11-14] MEDS ORDERED: POTASSIUM CHLORIDE TABS 20 MEQ TABLET.ER (FP) PO ONE (01:46)
[2022-11-14] MEDS ORDERED: POTASSIUM CHLORIDE ORAL LIQUID 20 MEQ/15 ML ONE (02:31)
[2022-11-14] MEDS ORDERED: LIDOCAINE PATCH REMOVAL MC ONE (12:00)
[2022-11-14] MEDS ORDERED: LIDOCAINE PATCH REMOVAL MC SCH ×2 (22:00)
== END 2022-11-14 02:58 | disposition home or self-care (01) ==
LOC: JER 22:41
PROC: 3E033GC Introduction of Other Therapeutic Substance into Peripheral Vein, Percutaneous Approach (ICD-10-PCS; principal; 2022-11-13)
PROC: 3E033GC Introduction of Other Therapeutic Substance into Peripheral Vein, Percutaneous Approach (ICD-10-PCS; 2022-11-13)
DX: R07.89 Other chest pain (principal); R10.13 Epigastric pain; G89.29 Other chronic pain; E87.6 Hypokalemia
CPT/HCPCS: 36415; 71045-TC-FY; 80053; 83690; 84484; 85025; 85610; 85730; 93005; 93010; 96365; 96375; 99285-25

== ENCOUNTER 2023-09-14 23:50 | Observation (INO) | payer MEDICARE, OTHER ==
[2023-09-15] MEDS ORDERED: METOCLOPRAMIDE HCL INJECTION 10 MG/2 ML VIAL ONE (00:41)
[2023-09-15] MEDS: ACETAMINOPHEN 1000 MG/100 ML BAG IVPB ONE (01:03)
[2023-09-15] MEDS: METOCLOPRAMIDE HCL INJECTION 10 MG/2 ML VIAL IVPB ONE (01:03)
[2023-09-15] MEDS: LACTATED RINGERS SOLUTION 1000 ML INFUS.BAG IV ONE (01:03)
[2023-09-15 01:07] LABS: BASO % 0.6 % (0-2.0); EOS % 2.3 % (0-4.5); HEMATOCRIT 36.1 % (32.4-45.2); HEMOGLOBIN 12.2 GM/dL (10.7-15.3); LYMPH % 33.8 % (8-40); MCH 29.5 pg (25.7-33.7); MCHC 33.7 g/dl (32.0-36.0); MEAN CELL VOLUME 87.4 fl (80-96); MONO % 8.6 % (3.8-10.2); NEUT % 54.7 % (42.8-82.8); PLATELET COUNT 238 10^3/uL (134-434); RBC 4.13 M/mm3 (3.60-5.2); RDW 14.4 % (11.6-15.6); WHITE BLOOD COUNT 4.1 K/mm3 (4.0-10.0)
[2023-09-15 01:18] LABS: INR 0.93 (0.83-1.09); PROTHROMBIN TIME (PATIENT) 10.8 SEC (9.7-13.0)
[2023-09-15 01:20] LABS: ACTIVATED PTT 28.4 SECONDS (25.2-36.5)
[2023-09-15 01:29] LABS: POTASSIUM 4.5 mmol/L (3.5-5.1)
[2023-09-15 01:31] LABS: CALCIUM 9.4 mg/dL (8.5-10.1)
[2023-09-15 01:32] LABS: BLOOD UREA NITROGEN 16.8 mg/dL (7-18); MAGNESIUM 2.1 mg/dL (1.8-2.4)
[2023-09-15 01:35] LABS: PHOSPHOROUS 3.4 mg/dL (2.5-4.9)
[2023-09-15 01:36] LABS: BILIRUBIN,TOTAL 0.3 mg/dL (0.2-1); TOT PROT 7.5 g/dl (6.4-8.2)
[2023-09-15] MEDS ORDERED: ASPIRIN 81 MG CHEWABLE TABLETS ONE ×2 (04:40→04:42)
[2023-09-15] MEDS: ASPIRIN 81 MG CHEWABLE TABLETS PO ONE ×2 (04:45)
[2023-09-15] MEDS ORDERED: DOCUSATE SODIUM 100 MG CAPSULE (FP) PO PRN (05:24)
[2023-09-15] MEDS ORDERED: ACETAMINOPHEN 1000 MG/100 ML BAG IVPB PRN (05:28)
[2023-09-15] MEDS: LIDOCAINE VISCOUS 2% ORAL/TOP 15 ML UNIT-DOSE CUP MM ONE (06:43)
[2023-09-15] MEDS: MAG HYDROX/AL HYDROX/SIMETH -MYLANTA- ORAL SUSPENSION PO ONE (06:43)
[2023-09-15 06:49] LABS: BASO % 0.5 % (0-2.0); EOS % 1.7 % (0-4.5); HEMATOCRIT 31.3 % (32.4-45.2); HEMOGLOBIN 10.4 GM/dL (10.7-15.3); LYMPH % 28.8 % (8-40); MCH 29.1 pg (25.7-33.7); MCHC 33.2 g/dl (32.0-36.0); MEAN CELL VOLUME 87.7 fl (80-96); MEAN PLT VOLUME 8.2 fl (7.5-11.1); MONO % 8.3 % (3.8-10.2); NEUT % 60.7 % (42.8-82.8); PLATELET COUNT 220 10^3/uL (134-434); RBC 3.57 M/mm3 (3.60-5.2); RDW 14.3 % (11.6-15.6); WHITE BLOOD COUNT 4.5 K/mm3 (4.0-10.0)
[2023-09-15] MEDS ORDERED: MAG HYDROX/AL HYDROX/SIMETH 30 ML UNIT-DOSE CUP PO PRN (07:29)
[2023-09-15] MEDS ORDERED: CYCLOBENZAPRINE HCL 5 MG TABLET PO PRN (07:58)
[2023-09-15] MEDS ORDERED: PANTOPRAZOLE 40 MG TABLET PO ONE (10:36)
[2023-09-15] MEDS: LOSARTAN 50MG/HCTZ 12.5MG 1 TAB PO SCH (11:00)
[2023-09-15] MEDS: PANTOPRAZOLE 40 MG TABLET PO SCH (11:00)
[2023-09-15 15:38] VITALS: BMI 23.9
[2023-09-16] MEDS ORDERED: ACETAMINOPHEN 325 MG TABLET (FP) PO PRN (05:24)
[2023-09-16 08:19] LABS: POTASSIUM 3.8 mmol/L (3.5-5.1)
[2023-09-16 08:27] LABS: CALCIUM 9.8 mg/dL (8.5-10.1)
[2023-09-16 08:28] LABS: BLOOD UREA NITROGEN 21.5 mg/dL (7-18)
[2023-09-16] MEDS: ASPIRIN 81 MG CHEWABLE TABLETS PO SCH (09:15)
[2023-09-16] MEDS: metoPROLOL SUCCINATE 25 MG TAB.SR.24H (FP) PO SCH (09:16)
[2023-09-16 12:30] LABS: BASO % 0.6 % (0-2.0); EOS % 2.1 % (0-4.5); HEMATOCRIT 35.8 % (32.4-45.2); HEMOGLOBIN 12.2 GM/dL (10.7-15.3); MCH 29.5 pg (25.7-33.7); MCHC 33.9 g/dl (32.0-36.0); MEAN CELL VOLUME 87.1 fl (80-96); MEAN PLT VOLUME 7.6 fl (7.5-11.1); MONO % 9.1 % (3.8-10.2); NEUT % 63.2 % (42.8-82.8); PLATELET COUNT 232 10^3/uL (134-434); RBC 4.12 M/mm3 (3.60-5.2); RDW 14.5 % (11.6-15.6); WHITE BLOOD COUNT 3.3 K/mm3 (4.0-10.0)
[2023-09-16] MEDS: SUCRALFATE 1 GM TABLET (FP) PO SCH (13:54)
[2023-09-16] MEDS ORDERED: SUCRALFATE 1 GM/10 ML UNIT DOSE CUPS PO SCH (14:00)
[2023-09-16] MEDS ORDERED: ACETAMINOPHEN/CAFFEINE/BUTALBITAL 1 TAB PO PRN (15:18)
[2023-09-16] MEDS: PANTOPRAZOLE 40 MG TABLET PO SCH (22:41)
[2023-09-17] MEDS: SUCRALFATE 1 GM TABLET (FP) PO SCH (10:41)
[2023-09-17 10:48] VITALS: BP 115/69; PULSE 60; RESP 18; TEMP 98
== END 2023-09-17 14:05 | disposition home or self-care (01) ==
LOC: JER 23:50 → JERBED 09-15 04:38 → J4W 09-15 14:56
PROVIDERS: ADMIT Internal Medicine; ATTEND Internal Medicine
PROC: 3E033NZ Introduction of Analgesics, Hypnotics, Sedatives into Peripheral Vein, Percutaneous Approach (ICD-10-PCS; principal; 2023-09-15)
PROC: 3E0337Z Introduction of Electrolytic and Water Balance Substance into Peripheral Vein, Percutaneous Approach (ICD-10-PCS; 2023-09-15)
PROC: 3E033GC Introduction of Other Therapeutic Substance into Peripheral Vein, Percutaneous Approach (ICD-10-PCS; 2023-09-15)
DX: R77.8 Other specified abnormalities of plasma proteins (principal); R79.89 Other specified abnormal findings of blood chemistry; R07.89 Other chest pain; K21.9 Gastro-esophageal reflux disease without esophagitis; R51.9 Headache, unspecified; R26.2 Difficulty in walking, not elsewhere classified; I10 Essential (primary) hypertension; Z87.891 Personal history of nicotine dependence
CPT/HCPCS: 0241U-QW; 36415; 70450-TC; 71045-TC-FY; 80048; 80053; 82550; 83735; 84100; 84484; 85025; 85610; 85730; 93005; 93010; 93306-TC; 96374; 96375; 99285-25; G0378; J0131

== ENCOUNTER 2024-02-16 01:51 | Emergency (ER) | payer MEDICARE, OTHER ==
[2024-02-16 02:23] VITALS: BP 170/79; PULSE 74; RESP 15; TEMP 98; BMI 23.6
[2024-02-16] MEDS ORDERED: ACETAMINOPHEN 325 MG TABLET (FP) PO ONE (02:29)
[2024-02-16] MEDS ORDERED: ACETAMINOPHEN 325 MG TABLET (FP) ONE (02:45)
== END 2024-02-16 02:55 | disposition home or self-care (01) ==
LOC: JER 01:51
DX: R06.02 Shortness of breath (principal); M54.2 Cervicalgia; R07.9 Chest pain, unspecified
CPT/HCPCS: 93005; 93010; 99283-25

== ENCOUNTER 2024-08-08 15:29 | Emergency (ER) | payer MEDICARE, OTHER ==
[2024-08-08 15:49] VITALS: TEMP 98.8; BMI 24.1
[2024-08-08 16:44] LABS: BASO % 0.3 % (0-2.0); EOS % 0.7 % (0-4.5); HEMATOCRIT 38.3 % (32.4-45.2); HEMOGLOBIN 12.8 GM/dL (10.7-15.3); LYMPH % 15.7 % (8-40); MCH 29.3 pg (25.7-33.7); MCHC 33.5 g/dl (32.0-36.0); MEAN CELL VOLUME 87.4 fl (80-96); MEAN PLT VOLUME 8.6 fl (7.5-11.1); NEUT % 77.3 % (42.8-82.8); PLATELET COUNT 251 10^3/uL (134-434); RBC 4.38 M/mm3 (3.60-5.2); RDW 14.6 % (11.6-15.6); WHITE BLOOD COUNT 5.6 K/mm3 (4.0-10.0)
[2024-08-08] MEDS ORDERED: ACETAMINOPHEN 325 MG TABLET (FP) ONE (16:48)
[2024-08-08] MEDS: ACETAMINOPHEN 500 MG TABLET (FP) PO ONE (16:54)
[2024-08-08 17:02] LABS: POTASSIUM 3.9 mmol/L (3.5-5.1)
[2024-08-08 17:04] LABS: CALCIUM 9.7 mg/dL (8.5-10.1)
[2024-08-08 17:05] LABS: ALBUMIN 4.2 g/dl (3.4-5.0)
[2024-08-08 17:08] LABS: CREATININE 1.1 mg/dL (0.55-1.3)
[2024-08-08 17:09] LABS: EPI CELLS 6 /uL (0-25.1); HYALINE CASTS 0 /uL (0-3.1); PH,URINE 5.5 (5.0-8.0); URINE APPEARANCE CLEAR; URINE BACTERIA 18 /uL (0-1359); URINE BILIRUBIN NEGATIVE (NEGATIVE); URINE COLOR YELLOW; URINE GLUCOSE (UA) NEGATIVE (NEGATIVE); URINE KETONE NEGATIVE (NEGATIVE); URINE LEUK ESTERASE 1+ (NEGATIVE); URINE NITRITE NEGATIVE (NEGATIVE); URINE PROTEIN 1+ (NEGATIVE); URINE RBC 31 /uL (0-23.9); URINE UROBILINOGEN 0.2 mg/dL (0.2-1.0); URINE WBC 21 /uL (0-25.8)
[2024-08-08 17:09] LABS: BILIRUBIN,TOTAL 0.5 mg/dL (0.2-1)
[2024-08-08 17:10] LABS: TOT PROT 7.8 g/dl (6.4-8.2)
[2024-08-08 17:24] VITALS: BP 171/89; PULSE 61; RESP 19
== END 2024-08-08 19:50 | disposition admitted as inpatient to this hospital (09) ==
LOC: JER 15:29
DX: R07.89 Other chest pain (principal); R51.9 Headache, unspecified; I10 Essential (primary) hypertension
CPT/HCPCS: 36415; 71046-TC-FY; 80053; 81003; 84484; 85025; 87086; 93005; 93010; 99284-25